=== PATIENT | female | born 1990 | race Caucasian/White ===

== ENCOUNTER 2018-04-04 15:07 | Emergency (ER) | payer OTHER ==
[2018-04-04 15:28] VITALS: BP 124/78; PULSE 78; RESP 18; TEMP 98.8; O2SAT 100
--- NOTE | 2018-04-04 17:01 | ED PDOC ---
HPI: Dental Pain/Injury Time Seen by Provider: 04/04/18 16:20 Chief Complaint (Nursing): Dental Pain Chief Complaint (Provider): Dental Pain History Per: Patient History/Exam Limitations: no limitations Onset/Duration Of Symptoms: Days (x3 days ago) Current Symptoms Are (Timing): Still Present Additional Complaint(s): Analilia Ross is a 27 year old female with a past medical history, who presents to the emergency department who complains of tooth pain, onset x3 days ago. Patient states she was eating and she cracked her right lower tooth. She states she had pain and swelling to the effected gum area since. Patient called her dentist and made an appointment for 04/12/18. Patient is able to tolerate PO and denies any fever. PMD: Marely Lowe Past Medical History Reviewed: Historical Data, Nursing Documentation, Vital Signs Vital Signs: Last Vital Signs Temp 98.8 F 04/04/18 15:26 Pulse 78 04/04/18 15:26 Resp 18 04/04/18 15:26 BP 124/78 04/04/18 15:26 Pulse Ox 100 04/04/18 15:26 - Medical History PMH: No Chronic Diseases - Surgical History Surgical History: No Surg Hx - Family History Family History: States: Unknown Family Hx - Home Medications Home Medications: Ambulatory Orders Medication Instructions Recorded Ibuprofen [Motrin Tab] 600 mg PO TID 5 Days #15 tab 04/04/18 Penicillin VK [Penicillin VK Tab] 500 mg PO QID #28 tab 04/04/18 - Allergies Allergies/Adverse Reactions: Allergies Allergy/AdvReac Type Severity Reaction Status Date / Time No Known Allergies Allergy Verified 04/04/18 15:26 Review of Systems ROS Statement: Except As Marked, All Systems Reviewed And Found Negative ENT: Positive for: Other (tooth pain) Physical Exam - Reviewed Nursing Documentation Reviewed: Yes Vital Signs Reviewed: Yes - Physical Exam Appears: Positive for: Non-toxic, No Acute Distress Head Exam: Positive for: ATRAUMATIC, NORMOCEPHALIC ENT: Positive for: Other (Fractured right mandibular premolar tooth with surrounding gingival swelling; (-) abscess or trismus) Cardiovascular/Chest: Positive for: Regular Rate, Rhythm. Negative for: Murmur Respiratory: Positive for: Normal Breath Sounds. Negative for: Respiratory Distress Neurologic/Psych: Positive for: Alert, Oriented (x3) - ECG O2 Sat by Pulse Oximetry: 100 (RA) Pulse Ox Interpretation: Normal Medical Decision Making Medical Decision Making: Time: 16:20 Plan: --Motrin --Urine Patient instructed to follow up with dentist as scheduled on 04/12/18. Scribe Attestation: Documented by Abraham Torres, acting as a scribe for Kaela Craft PA-C. Provider Scribe Attestation: All medical record entries made by the Scribe were at my direction and personally dictated by me. I have reviewed the chart and agree that the record accurately reflects my personal performance of the history, physical exam, medical decision making, and the department course for this patient. I have also personally directed, reviewed, and agree with the discharge instructions and disposition. Disposition - Clinical Impression Clinical Impression: Pain, dental - Patient ED Disposition Is Patient to be Admitted: No Counseled Patient/Family Regarding: Diagnosis, Need For Followup, Rx Given - Disposition Disposition: Routine/Home Disposition Time: 17:10 Condition: STABLE Prescriptions: Ibuprofen [Motrin Tab] 600 mg PO TID 5 Days #15 tab Penicillin VK [Penicillin VK Tab] 500 mg PO QID #28 tab Instructions: Dental Pain (DC) Forms: [employer] (Green[place]ic)
== END 2018-04-04 17:36 | disposition home or self-care (01) ==
LOC: H.ER 15:07
DX: K08.89 Other specified disorders of teeth and supporting structures (principal)